=== PATIENT | male | born 1985 | race African-American/Black ===

== ENCOUNTER 2019-09-13 00:16 | Outpatient (CLI) | payer OTHER, SELFPAY ==
[2019-09-13 18:31] LABS: SARS-CoV-2 RNA PCR Negative
== END 2019-09-13 00:17 | disposition home or self-care (01) ==
LOC: ANHCOVIDDT 00:17
PROVIDERS: PCP Family Medicine; Visit Provider Otolaryngology
DX: Z01.812 Encounter for preprocedural laboratory examination (principal); Z11.59 Encounter for screening for other viral diseases
CPT/HCPCS: 87635; C9803; U0003

== ENCOUNTER 2019-09-16 01:49 | Day surgery (SDC) | payer OTHER, SELFPAY ==
[2019-09-08 09:38] VITALS: BMI 35.3
--- NOTE | 2019-09-15 07:43 | PM.HPGS ---
History of Present Illness History of Present Illness Consent: Risks, benefits, and has a history of inability to breathe out of his nose is septum is deviated with obstruction Luís is otherwise negative chest clear other murmurs abdomen is soft and is negative impression septal deviation septoplastyalternatives have been discussed and questions answered. Patient agrees to proceed with procedure. Chief complaint: Nasal Septal Deviation Narrative: Yvon Antoine is a 34 year old male has a deviated septum with nasal obstruction that he can't breathe out of his nose has been unresponsive to medical management Review of Systems Review of Systems: All systems reviewed & are unremarkable except as noted in HPI and below PMFSH Social History Social History Years smoked: 3 Smoking status: Never smoker Tobacco type: cigars Second hand tobacco smoke exposure: No Additional smoking assessment comments: SMOKES CIGARS OCCASIONALLY Alcohol intake: never Substance use: never Substance use type: does not use Spiritual care concerns: No Meds Home Medications and Allergies Home Medications Medication Instructions Recorded Confirmed Type multivitamin 1 tablet PO DAILY 09/08/19 09/08/19 History Allergies Allergy/AdvReac Type Severity Reaction Status Date / Time No Known Allergies Allergy Verified 09/08/19 09:39 Assessment and Plan Additional Plan planus a septoplasty
--- NOTE | 2019-09-15 17:02 | P.PNAN_ITS ---
Anes - Eval Pre Procedure Procedure: Operation Date: 09/16/19 08:30 Proposed Procedures p Septoplasty - Fer Schwartz MD Date/Time: 09/15/19 17:02 Pre Op Diagnosis: Nasal Septal Deviation Patient Data Age: 34 Gender: M Height: 6 ft 2 in Weight: 124.74 kg Allergies Allergy/AdvReac Type Severity Reaction Status Date / Time No Known Allergies Allergy Verified 09/08/19 09:39 Home Medications Medication Instructions Recorded Confirmed Type multivitamin 1 tablet PO DAILY 09/08/19 09/08/19 History Patient hx anesthesia problems: none Family hx anesthesia problems: none PMF Past Medical History Medical History (Updated 09/15/19 @ 17:03 by Duane Wood CRNA) Broken nose 2002 Chronic recurrent sinusitis Deviated septum Eczema Seasonal allergies Stuffy nose (~11/2018) Syncope Surgical History Surgical History History of nasal surgery 2002 [place] teeth extracted 2001 Social History Social History Years smoked: 3 Smoking status: Never smoker Tobacco type: cigars Second hand tobacco smoke exposure: No Additional smoking assessment comments: SMOKES CIGARS OCCASIONALLY Alcohol intake: never Substance use: never Substance use type: does not use Spiritual care concerns: No Exam Day of Procedure 09/15/19 17:02 Patient weight: morbidly obese
--- NOTE | 2019-09-16 06:08 | WPDHPUPDATE1 ---
History and Physical Update Update Date/Time: 09/16/19 06:08 History and Physical has been reviewed, including an updated exam of the patient. There are NO changes in the patient's condition. Risks, benefits, and alternatives have been discussed and questions answered. Patient agrees to proceed with procedure.
[2019-09-16] MEDS: LACTATED RINGERS 1,000 ML 30 ML IV CONT (06:50)
--- NOTE | 2019-09-16 07:08 | P.PNAN_ITS ---
Anes - Initial Pre Proc Eval Procedure: Operation Date: 09/16/19 08:30 Proposed Procedures p Septoplasty - Fer Schwartz MD Date/Time: 09/16/19 07:08 Surgeon: Fer Schwartz MD Pre Op Diagnosis: Nasal Septal Deviation Patient Data Age: 34 Gender: M Height: 6 ft 2 in Weight: 124.74 kg Allergies Allergy/AdvReac Type Severity Reaction Status Date / Time No Known Allergies Allergy Verified 09/08/19 09:39 Home Medications Medication Instructions Recorded Confirmed Type multivitamin 1 tablet PO DAILY 09/08/19 09/08/19 History Patient hx anesthesia problems: none Family hx anesthesia problems: none PMFSH Past Medical History Medical History Broken nose 2002 Chronic recurrent sinusitis Deviated septum Eczema Seasonal allergies Stuffy nose (~11/2018) Syncope Surgical History Surgical History History of nasal surgery 2002 [place] teeth extracted 2001 Family History Family History Other No pertinent family history Social History Social History Years smoked: 3 Smoking status: Never smoker Tobacco type: cigars Second hand tobacco smoke exposure: No Additional smoking assessment comments: SMOKES CIGARS OCCASIONALLY Alcohol intake: never Substance use: never Substance use type: does not use Spiritual care concerns: No Anes - Eval Final PreProcedure Day of Procedure 09/16/19 07:08 Patient weight: obese Heart: regular rate and rhythm Lungs: clear to auscultation Airway: Mallampati scale class II Neurological: alert and oriented Last oral intake: >/= 8 hours ASA classification: II Emergent: no Anesthetic plan: proceed Anesthesia type and monitoring: general ETT and standard monitoring Informed Consent: The patient's anesthetic plan and its attendant risks and benefits were discussed with the patient/family/POA. Questions were solicited and answers provided to the satisfaction of the patient/family/POA.
--- NOTE | 2019-09-16 07:39 | PM.PROC ---
Procedure Note - Detailed Date of procedure: 09/16/19 Pre-op diagnosis: Nasal Septal Deviation Surgeon: Fer Schwartz MD
[2019-09-16] MEDS: ACETAMINOPHEN 500 MG TABLET 1000 MG PO (07:45)
--- NOTE | 2019-09-16 08:02 | PM.PROC ---
Procedure Note - Detailed Date of procedure: 09/16/19 Pre-op diagnosis: Nasal Septal Deviation Post-op diagnosis: same Procedure performed: Tonsillectomy Description of procedure: Patient was prepped and draped in usual fashion after induction of anesthesia. The McIvor mouth gag was inserted. The tonsils were removed dissection technique hemostasis was obtained electrocautery. The mouth was inspected for bleeding. When stablized patient was awaken and brought to the recovery room in good condition. Anesthesia: GLMA Surgeon: Fer Schwartz MD Estimated blood loss (mL): 15 Drains: No Packing: No Pathology: none sent Complications: No immediate complications Condition: stable Disposition: PACU
[2019-09-16] MEDS: LIDO 1%/EPINEPHRINE 1:100,000 20 ML VIAL 10 ML INFILTRATE (08:34)
--- NOTE | 2019-09-16 08:54 | PM.PROC ---
Procedure Note - Detailed Date of procedure: 09/16/19 Pre-op diagnosis: Nasal Septal Deviation septal deviation nasal polyps Description of procedure: patient was prepped and draped fashion general anesthesia the nose was packed with cocaine impregnated cottonoids and then injected with xylocaine with adrenaline inspection of the nose revealed a septum deviated to the right a left efren transfix incision was made left anterior portion was elevated the bony cartilage junction it appeared that there were polyps on the right and left side was removed with Sanjay forceps strip of septal cartilage removed off the maxillary crest incision was then closed with 4 0 chromic García splints placed in neck with Surgicel Anesthesia: GLMA Surgeon: Fer Schwartz MD Estimated blood loss (mL): 25 Drains: No Packing: Yes Pathology: yes Complications: No immediate complications Condition: stable Disposition: PACU
[2019-09-16 09:04] VITALS: BP 144/97; PULSE 99; RESP 20; TEMP 36.7; O2SAT 97
[2019-09-16 09:15] VITALS: BP 126/91; PULSE 90; RESP 20; O2SAT 100
[2019-09-16 09:30] VITALS: BP 129/95; PULSE 80; RESP 12; O2SAT 100
[2019-09-16 09:45] VITALS: BP 134/95; PULSE 79; RESP 10; O2SAT 96
[2019-09-16 09:55] VITALS: BP 135/91; PULSE 73; RESP 16
[2019-09-16 10:15] VITALS: BP 140/87; PULSE 82; RESP 16
== END 2019-09-16 10:30 | disposition home or self-care (01) ==
PROVIDERS: PCP Family Medicine; Visit Provider Otolaryngology
PROC: (CPT 30520; principal; 2019-09-16 08:30)
DX: J34.2 Deviated nasal septum (principal); J33.9 Nasal polyp, unspecified; Z72.0 Tobacco use
CPT/HCPCS: 30520; 87635; 88305; A9270; C9803; J0330; J1100; J2250; J2405; J2704; J3010; J7120; U0003

== ENCOUNTER 2020-02-14 07:50 | Emergency (ER) | payer OTHER, SELFPAY ==
--- NOTE | ~2020-02-14 | XR_ITS ---
EXAMINATION: XR chest 1V portable DATE: 02/14/2020 08:50 INDICATION: Fever and chills. Diarrhea. TECHNIQUE: A single frontal view of the chest was obtained. COMPARISON: None. FINDINGS: The chest demonstrates clear lungs without pneumonia, pleural effusion, or pneumothorax. Th e heart size is normal. IMPRESSION: 1. No acute cardiopulmonary disease. Reviewed, dictated and finalized at location A. UNTANT SYSTEMS
--- NOTE | ~2020-02-14 | CT_ITS ---
EXAMINATION: CTA chest PE protocol DATE: 02/14/2020 10:28 INDICATION: Shortness of breath. TECHNIQUE: Computed tomography angiography (CTA) of the chest was performed with 100 mL Omnipaque-350 intravenous contrast timed to evaluate the pulmonary arteries. Coronal maximum intensity projection 3D-reconstructions were created by the technologist. Automated exposure control and iterative reconst ruction technique were employed. The dose-length product was 997.12 mGy-cm. COMPARISON: Chest single view 02/14/2020 FINDINGS: There is mild atelectasis bilaterally. No pleural effusion. The heart size is normal. No pe ricardial effusion. There is no pulmonary embolus. There is mild thoracic spondylosis. IMPRESSION: 1. No pulmonary embolus. Sensitivity is moderately decreased by suboptimal contrast opacification. Th e patient refused new IV placement. Reviewed, dictated and finalized at location A. OMER SALES REPRESENTATIVE IMPRESSION: 1. No pulmonary embolus. Sensitivity is moderately decreased by suboptimal cont rast opacification. The patient refused new IV placement.
[2020-02-14 07:53] VITALS: BP 137/79; PULSE 96; RESP 20; TEMP 36.5; O2SAT 97
--- NOTE | 2020-02-14 08:15 | ECG_ITS ---
Measurements Intervals [place] Rate: 99 P: 26 [place]: 139 QRS: -8 QRSD: 102 T: 0 QT: 287 QTc: 369 Interpretive Statements SINUS RHYTHM INCOMPLETE RIGHT BUNDLE BRANCH BLOCK BORDERLINE T WAVE ABNORMALITY- ANT/INF LEADS BASELINE ARTIFACT- I, II, III, AVL BORDERLINE ECG Electronically Signed On 02-14-2020 10:17:47 BAGGAGE CHECKER by Iggy Bennett D.O.
[2020-02-14] MEDS: ONDANSETRON INJ 4 MG/2 ML VIAL IV PUSH (08:30)
[2020-02-14] MEDS: SODIUM CHLORIDE 0.9% IV 1,000 ML 999 ML IV CONT (08:30)
[2020-02-14 08:50] LABS: Basophils Absolute Auto 0.1 K/mm3 (0.0-0.1); Basophils Percent Auto 0.5 % (0.2-1.2); Eosinophils Absolute Auto 0.1 K/mm3 (0-0.3); Eosinophils Percent Auto 0.9 % (0-4.4); Hemoglobin 13.2 g/dL (14.0-18.0); Immature Granulocyte Absolute 0.04 K/mm3 (0.00-0.031); Immature Granulocyte Percent A 0.4 % (0-0.5); Lymphocytes Absolute Auto 1.06 K/mm3 (0.9-3.2); Lymphocytes Percent Auto 10.6 % (18.3-44.2); Mean Corpuscular Hemoglobin 27.2 pg (26-34); Mean Corpuscular Volume 82.3 fl (80-100); Mean Platelet Volume 9.8 fl (7.4-10.4); Monocytes Absolute Auto 0.8 K/mm3 (0.1-0.6); Monocytes Percent Auto 7.9 % (2.6-8.5); Neutrophils Percent Auto 79.7 % (45.5-73.1); Platelet Count Result 249 k/mm3 (150-375); Red Blood Count 4.86 M/mm3 (4.6-6.20); Red Cell Distribution Width 13.7 % (11.5-14.5)
[2020-02-14 09:02] LABS: D Dimer 0.51 ug/mL (<0.48)
[2020-02-14 09:04] LABS: Alanine Aminotransferase 48 U/L (4-50); Albumin Level 4.3 g/dL (3.5-5.1); Alkaline Phosphatase 66 U/L (38-126); Anion Gap 13 mmol/L (8-16); Aspartate Amino Transferase 66 U/L (17-59); Bilirubin,Total 0.4 mg/dL (0.2-1.3); Blood Urea Nitrogen 15 mg/dL (9-20); Calcium 9.3 mg/dL (8.4-10.2); Carbon Dioxide 25 mmol/L (22-30); Chloride 102 mmol/L (98-107); Estimated CRCL calculation 166 ml/min; Estimated Glomerular Filt Rate > 60; Glucose 102 mg/dL (75-110); Lipase 56 U/L (23-300); Potassium 3.8 mmol/L (3.4-5.0); Sodium 140 mmol/L (137-145)
[2020-02-14 09:34] LABS: Add Urine Microscopic? YES; Appearance Urine Clear (Clear); Bilirubin Urine Negative (Negative); Blood Urine Negative (Negative); Color Urine Yellow (Yellow); Glucose Urine UA Negative (Negative); Hyaline Casts Urine 15-19 /lpf; Ketones Urine Negative (Negative); Leukocyte Esterase Ur Negative LEU/UL (Negative); Mucus Urine Few /lpf; Nitrate Urine Negative (Negative); Protein Urine 1+ mg/dL (Negative); RBC Urine 0-2 /hpf (0-2); Specific Grav Ur 1.019 (1.001-1.035); Squamous Epithelial Cell Urine Rare /hpf (Few); Urobilinogen Urine Negative mg/dL (<2.0); WBC Urine 0-3 /hpf
--- NOTE | 2020-02-14 10:24 | ED.FEVER ---
HPI - Fever General Chief Complaint: Fever Stated Complaint: FEVER, CONGESTION Time Seen by Provider: 02/14/20 07:55 Source: patient Mode of arrival: ambulatory Limitations: no limitations History of Present Illness HPI Narrative: This patient is a 34 year old male who presents for evaluation of possible covid. He states this morning he developed nausea, vomiting, diarrhea. HE reports he had 3 episodes of diarrhea and abdominal pain. He denies abdominal pain now. He also reports body aches and low grade temperature this morning. He also report cough and sob this morning. He states was seen at [facility] but he started feeling sob so he came to [facility] . He denies sob currently and he denies chest pain. He reports his daughter has covid. Related Data Home Medications Medication Instructions Recorded Confirmed multivitamin 1 tablet PO DAILY 09/08/19 09/16/19 Allergies Allergy/AdvReac Type Severity Reaction Status Date / Time No Known Allergies Allergy Verified 02/14/20 08:03 Review of Systems Review of Systems: All systems reviewed & are unremarkable except as noted in HPI and below Constitutional: Constitutional: Reports chills and Reports fever(s) ENT: Reports nasal congestion and Denies sore throat Cardiovascular: Cardiovascular: Denies chest pain Respiratory: Respiratory: Denies cough and Reports dyspnea Gastrointestinal: Gastrointestinal: Reports abdominal pain, Reports diarrhea, Reports nausea and Reports vomiting Musculoskeletal: Musculoskeletal: Reports myalgias Neurologic: Reports headache(s) [facility] Past Medical History Medical History (Updated 02/14/20 @ 11:32 by Brianna Heaton MD) Broken nose 2002 Chronic recurrent sinusitis Deviated septum Eczema Seasonal allergies Stuffy nose (~11/2018) Syncope Surgical History Surgical History History of nasal surgery 2002 [place] teeth extracted 2001 Family History Family History Other No pertinent family history Social History Social History Years smoked: 3 Smoking status: Never smoker Tobacco type: cigars Second hand tobacco smoke exposure: No Additional smoking assessment comments: SMOKES CIGARS OCCASIONALLY Alcohol intake: never Substance use: never Substance use type: does not use Gender identity (if verbalized by the patient): Male Spiritual care concerns: No Exam Const: General: no acute distress and alert Orientation/consciousness: patient oriented x3 HENMT: Head: normocephalic and atraumatic Ears: TM's normal bilaterally Face and sinus: sinuses nontender and face symmetric Mouth: Yes Normal oral and palatal mucosa present, Yes lip normal, Yes oropharynx normal and Yes moist mucous membranes Throat: tonsils normal and uvula midline Eyes: Pupils: Equal, round and reactive pupils present EOM: EOMs intact bilaterally Chest: Chest palpation & inspection: normal inspection of the chest Resp: Effort & Inspection: normal respiratory effort, no retractions and no use of accessory muscles Auscultation: clear to auscultation bilaterally Cardio: Rate: regular rate Rhythm: regular rhythm Heart sounds: no murmurs GI: GI Palp: Yes Soft to palpation, No Tenderness to palpation present (GI) and No Guarding due to palpation present (GI) Auscultation: normal bowel sounds Skin: General skin exam: normal color Rashes: no rashes Neuro: General: patient oriented x3, moves all extremities and CN's II-XI intact bilaterally Extrem: General: normal to inspection Psych: Mental Status: mental status grossly normal Affect: normal affect Course Reevaluation(s) Reevaluation #1: PAtient denies nausea and vomiting . I explained that the CTA that was performed was not optimal enough to completely rule out PE. I discuss
[2020-02-14 11:20] VITALS: BP 115/72; PULSE 89; RESP 16; O2SAT 95
[2020-02-14 11:46] VITALS: BP 115/66; PULSE 98; RESP 19; O2SAT 99
[2020-02-14 18:58] LABS: SARS-CoV-2 RNA PCR Negative
== END 2020-02-14 11:47 | disposition home or self-care (01) ==
PROVIDERS: Emergency Provider General Practice; PCP Family Medicine
DX: B34.9 Viral infection, unspecified (principal); E86.0 Dehydration; Z20.828 Contact with and (suspected) exposure to other viral communicable diseases; F17.290 Nicotine dependence, other tobacco product, uncomplicated; I45.10 Unspecified right bundle-branch block; R94.31 Abnormal electrocardiogram [ECG] [EKG]
CPT/HCPCS: 36415; 71045; 71275; 80053; 81001; 83690; 85025; 85380; 87635; 87804; 93005; 96361; 96374; 96375; 99284; C9803; J0131; J2405; J7030; Q9967; U0003

== ENCOUNTER 2020-03-05 14:06 | Outpatient (CLI) | payer OTHER, SELFPAY ==
--- NOTE | ~2020-03-05 | CT_ITS ---
EXAMINATION: CT sinus wo con DATE: 03/05/2020 14:30 INDICATION: Follow-up of nasal cavity TECHNIQUE: Computed tomography (CT) of the paranasal sinuses was performed without contrast. Iterativ e reconstruction technique was employed. Exam dose: 294.13 mGy-cm total exam DLP. COMPARISON: None FINDINGS: There is rightward bowing of the nasal septum. There is extensive soft tissue thickening of the left nasal cavity and opacification of the middle me diated 6 bilaterally, the middle nasal turbinates largely and coughed by surrounding soft tissue thic kening. There is soft tissue swelling of the inferior nasal turbinates, primarily on the left. The left and right maxillary sinuses and of the ostiomeatal units as well as the frontal and sphenoid sinuses are virtually completely opacified, with small locule residual air only in the right frontal sinus. There is extensive opacification of the ethmoid air cells as well. The bony laureano of the paranasal sinuses are intact except for thinning along the medial wall of both maxillary sinuses. The mastoid air cells are normally developed and aerated bilaterally. Middle and inner ear apparatus appear unremarkable bilaterally. IMPRESSION: Severe pansinusitis with nearly complete opacification of the paranasal sinuses and comp lete opacification of the ostiomeatal units Extensive soft tissue thickening of the left nasal cavity, the middle meatus bilaterally Reviewed, dictated and finalized at Location A. Reviewed, dictated and finalized at location B. NEL OPENER IMPRESSION: Severe pansinusitis with nearly complete opacification of the para nasal sinuses and complete opacification of the ostiomeatal units Extensive soft tissue thickening of the left nasal cavity, the middle meatus bi laterally
== END 2020-03-05 14:07 | disposition home or self-care (01) ==
PROVIDERS: PCP Family Medicine; Visit Provider Otolaryngology
DX: J33.0 Polyp of nasal cavity (principal)
CPT/HCPCS: 70486

== ENCOUNTER → 2020-04-06 03:36 | Outpatient (CLI) | payer OTHER, SELFPAY ==
[2020-04-07 18:18] LABS: SARS-CoV-2 RNA PCR Negative
== END ==
PROVIDERS: PCP Family Medicine; Visit Provider Otolaryngology
DX: Z01.812 Encounter for preprocedural laboratory examination (principal); Z20.822 Contact with and (suspected) exposure to COVID-19
CPT/HCPCS: C9803; U0003; U0005

== ENCOUNTER 2020-04-09 01:24 | Day surgery (SDC) | payer OTHER, SELFPAY ==
[2020-04-05 14:12] VITALS: BMI 37.2
--- NOTE | 2020-04-08 12:28 | PM.IMHP ---
H&P: HPI History of Present Illness Date/Time: 04/08/20 12:28 Chief Complaint: crs, nasal polyps, septal deviation, inferior turbinate hypertrophy Narrative: Yvon Antoine is a 34 year old male who presents for planned surgical procedure. He reports No new changes in his symptoms or medical history. Review of Systems Constitutional: Constitutional: Denies fatigue, Denies fever(s) and Denies lethargy Eyes: Eyes: Denies blurry vision and Denies change in vision ENT: Reports as per HPI Cardiovascular: Cardiovascular: Denies chest pain Respiratory: Respiratory: Denies cough Endocrine: Endocrine: Denies fatigue Hematologic/Lymphatic: Hematologic/Lymphatic: Denies easy bleeding, Denies easy bruising and Denies lymphadenopathy Allergic/Immunologic: Allergic/Immunologic: Denies seasonal rhinorrhea [facility] Past Medical History Medical History (Updated 04/08/20 @ 12:29 by Wilner Shearer MD) Broken nose 2002 Chronic recurrent sinusitis Deviated septum Eczema Seasonal allergies Stuffy nose (~11/2018) Syncope Surgical History Surgical History History of nasal surgery 2002 [place] teeth extracted 2001 Family History Family History Other No pertinent family history Social History Social History Years smoked: 3 Smoking status: Never smoker Tobacco type: cigars Second hand tobacco smoke exposure: No Additional smoking assessment comments: SMOKES CIGARS OCCASIONALLY Alcohol intake: current Drinks per week: 1 Substance use: current Substance use type: marijuana Last use: 04/04/2020 Gender identity (if verbalized by the patient): Male Spiritual care concerns: No Meds Home Medications and Allergies Home Medications Medication Instructions Recorded Confirmed Type fluticasone propionate 50 1 spray INTRANASAL BID #9.9 ml 02/11/20 04/05/20 Rx mcg/actuation nasal spray,suspension budesonide 0.25 mg/2 mL suspension 0.25 mg IRRIGATION BID #60 ml 03/11/20 04/05/20 Rx for nebulization Allergies Allergy/AdvReac Type Severity Reaction Status Date / Time No Known Allergies Allergy Verified 04/05/20 14:08 Exam Const: General: cooperative, healthy appearing, comfortable, well developed and alert HENMT: Head: normal to inspection, normocephalic and atraumatic Ears: hearing grossly normal bilaterally, external ears normal, TM's normal bilaterally and EAC's normal General nose exam: Normal external nose present, Normal nares present, nasal polyps, mucous membranes and turbinates abnormal and abnormal septum Face and sinus: normal facial exam Mouth: Yes Normal oral and palatal mucosa present, Yes lip normal, Yes tongue normal, Yes oropharynx normal and Yes moist mucous membranes Teeth and gingiva: dentition normal and gingiva normal Throat: posterior oropharynx normal, tonsils normal and uvula midline Eyes: General: appearance normal, both eyes and all related structures Periorbital: periorbital findings normal Eyelids: eyelids normal Conjunctivae: conjunctivae normal Sclera: sclerae normal Neck: Neck: normal visual inspection, full ROM and no lymphadenopathy Thyroid: thyroid normal Lymphatic: no lymphadenopathy noted Resp: Effort & Inspection: normal respiratory effort and able to speak in complete sentences Cardio: Jugular venous distension: no JVD Neuro: Cranial nerves: Yes CN's II-XII intact bilaterally Assessment and Plan Assessment and plan (1) Chronic sinusitis: Code(s): J32.9 - Chronic sinusitis, unspecified Status: Acute Assessment and Plan: plan is for the OR for bilateral endoscopic maxillary antrostomies total ethmoidectomies sphenoidotomy is and frontal sinusotomies as well as septoplasty and inferior turbinate reductions. The risks were discussed including bl
--- NOTE | 2020-04-08 15:41 | P.PNAN_ITS ---
Anes - Initial Pre Proc Eval Procedure: Operation Date: 04/09/20 15:30 Proposed Procedures p Bilateral Endoscopic Maxillary Antrostomy, Total Ethmoidectomy, Sphenoidotomy, Frontal Sinusotomy Fusion Protocol, Nasal Polypectomy - Wilner Shearer MD s Septoplasty - Wilner Shearer MD Date/Time: 04/08/20 15:41 Surgeon: Wilner Shearer MD Pre Op Diagnosis: Chronic Sinusitis, Nasal Septum Deviation Patient Data Age: 34 Gender: M Height: 1.88 m Weight: 131.54 kg Allergies Allergy/AdvReac Type Severity Reaction Status Date / Time No Known Allergies Allergy Verified 04/09/20 13:21 Home Medications Medication Instructions Recorded Confirmed Type fluticasone propionate 50 1 spray INTRANASAL BID #9.9 ml 02/11/20 04/09/20 Rx mcg/actuation nasal spray,suspension budesonide 0.25 mg/2 mL suspension 0.25 mg IRRIGATION BID #60 ml 03/11/20 04/09/20 Rx for nebulization Patient hx anesthesia problems: none Family hx anesthesia problems: none PMFSH Past Medical History Medical History (Updated 04/08/20 @ 15:42 by Ted Rios MD) Broken nose 2002 Chronic recurrent sinusitis Deviated septum Eczema Obesity Seasonal allergies Stuffy nose (~11/2018) Syncope Surgical History Surgical History History of nasal surgery 2002 [place] teeth extracted 2001 Family History Family History Other No pertinent family history Social History Social History Years smoked: 3 Smoking status: Never smoker Tobacco type: cigars Second hand tobacco smoke exposure: No Additional smoking assessment comments: SMOKES CIGARS OCCASIONALLY Alcohol intake: current Drinks per week: 1 Alcohol use details: MIXED DRINK Substance use: current Substance use type: marijuana Last use: 04/04/2020 Living arrangements: with family Gender identity (if verbalized by the patient): Male Spiritual care concerns: No Anes - Eval Final PreProcedure Day of Procedure 04/08/20 15:41 Patient weight: obese Heart: regular rate and rhythm Lungs: clear to auscultation and normal air movement Airway: Mallampati scale class II Neurological: alert and oriented Last oral intake: >/= 8 hours ASA classification: II Emergent: no Anesthetic plan: proceed Anesthesia type and monitoring: general GIVS Informed Consent: The patient's anesthetic plan and its attendant risks and benefits were discussed with the patient/family/POA. Questions were solicited and answers provided to the satisfaction of the patient/family/POA.
[2020-04-09] VITALS (10 sets, daily range): BP systolic 128–150; BP diastolic 56–103; PULSE 71–84; RESP 10–18; TEMP 36.9–37.1; O2SAT 93–100
--- NOTE | 2020-04-09 06:57 | WPDHPUPDATE1 ---
History and Physical Update Update Date/Time: 04/09/20 06:57 History and Physical has been reviewed, including an updated exam of the patient. There are NO changes in the patient's condition. Risks, benefits, and alternatives have been discussed and questions answered. Patient agrees to proceed with procedure.
--- NOTE | 2020-04-09 12:36 | SUR.PREOP ---
CALLED PT AND LEFT MESSAGE TO COME TO HOSPITAL NOW. SURGEON RUNNING AHEAD.
[2020-04-09] MEDS: LACTATED RINGERS 1,000 ML 30 ML IV CONT ×2 (13:45→17:01)
[2020-04-09] MEDS: ACETAMINOPHEN 500 MG TABLET 1000 MG PO (13:45)
[2020-04-09] MEDS: ceFAZolin 2 GM/D5W 50 ML 2 GM/50 ML BAG IVPB (14:38)
[2020-04-09] MEDS: LIDO 1%/EPINEPHRINE 1:100,000 50 ML VIAL INFILTRATE (14:49)
--- NOTE | 2020-04-09 17:08 | PM.PROC ---
Procedure Note - Detailed Date of procedure: 04/09/20 Pre-op diagnosis: Chronic Sinusitis, Nasal Septum Deviation No nasal septal deviation no inferior turbinate hypertrophy Post-op diagnosis: same Procedure performed: Bilateral endoscopic maxillary antrostomies with tissue removal total ethmoidectomies sphenoidotomies with tissue removal frontal sinusotomies with tissue removal Description of procedure: The patient was correctly identified and consent was verified in the preoperative holding area. The patient was then brought to the operating room and a time-out was performed. General anesthesia was induced and endotracheal tube was secured the patient's airway and taped the left lower lip. The patient was then prepped and draped for the aforementioned procedure and placed in reverse Trendelenburg. Afrin-soaked pledgets were placed in the bilateral nasal passages and allowed to sit for 10 minutes. Afrin-soaked pledgets were then removed. A 0 degree endoscope was utilized to the bilateral nasal passages were polyps were noted. Backbiter was utilized to perform a left-sided maxillary antrostomy this was completed using a straight through cut. A 70 degree as well as RAD 40 scope relies to perform and complete the tissue removal from the left maxillary sinus. Kerrison punch was then utilized to perform total ethmoidectomy and sphenoidotomy. Microdebrider was utilized to remove tissue from the sphenoid sinus as well as polyps throughout the nasal passage. A 70 degree scope and frontal sinus instruments were utilized to dissect the frontal sinus outflow tract. Again the RAD 40 was utilized to remove tissue from the frontal sinus. Hemostasis was noted to be adequate. The same procedure was performed on the right side with similar findings. Of note a portion of the right middle turbinate also had to be removed given its size of severe polypoid disease. Hemostasis at the end of the procedure was noted to be excellent. Patient tolerated the procedure well. There were no complications. Care of the patient was turned over to Anesthesiology. I performed all dictated portions of the procedure. Anesthesia: GLMA Surgeon: Wilner Shearer MD Complications: No immediate complications Condition: stable Disposition: PACU
[2020-04-09] MEDS: oxyCODONE HCL (*CRX) 5 MG TAB IR PO (18:29)
== END 2020-04-09 19:05 | disposition home or self-care (01) ==
PROVIDERS: PCP Family Medicine; Visit Provider Otolaryngology
PROC: (CPT 31267; principal; 2020-04-09 15:30)
PROC: (CPT 30520; 2020-04-09 15:30)
DX: J32.9 Chronic sinusitis, unspecified (principal); J34.2 Deviated nasal septum; J34.3 Hypertrophy of nasal turbinates; J33.8 Other polyp of sinus; E66.9 Obesity, unspecified; Z68.39 Body mass index [BMI] 39.0-39.9, adult
CPT/HCPCS: 31267; 31257; 31253; 61782; A9270; C9803; J0330; J0690; J1100; J1170; J2250; J2370; J2405; J2704; J3010; J7120; U0003; U0005

== ENCOUNTER 2020-04-26 04:40 | Inpatient (IN) | payer OTHER, SELFPAY ==
[2020-04-26] VITALS (7 sets, daily range): BP systolic 109–122; BP diastolic 58–74; PULSE 102–117; RESP 16–20; TEMP 36.9–37.5; O2SAT 95–100; BMI 38.7
--- NOTE | ~2020-04-26 | XR_ITS ---
EXAMINATION: XR chest 1V portable DATE: 04/26/2020 05:24 INDICATION: Tachycardia. TECHNIQUE: A single frontal view of the chest was obtained. COMPARISON: Chest CT 04/26/2020 FINDINGS: There is no pneumonia, pleural effusion, or pneumothorax. Cardiomegaly is noted. IMPRESSION: 1. Cardiomegaly. Reviewed, dictated and finalized at location A. LLEL COMPUTING SOFTWARE ENGINEER IMPRESSION: 1. Cardiomegaly.
--- NOTE | ~2020-04-26 | CT_ITS ---
EXAMINATION: CTA chest PE protocol DATE: 04/26/2020 05:47 INDICATION: Tachycardia. TECHNIQUE: Computed tomography angiography (CTA) of the chest was performed with 100 mL Omnipaque-350 intravenous contrast timed to evaluate the pulmonary arteries. Coronal maximum intensity projection 3D-reconstructions were created by the technologist. Automated exposure control and iterative reconst ruction technique were employed. The dose-length product was 915.27 mGy-cm. COMPARISON: None. FINDINGS: The lungs demonstrate mild atelectasis. No pleural effusion. The heart size is normal. No p ericardial effusion. The central pulmonary arteries are enlarged, consistent with pulmonary arterial hypertension. There is no pulmonary embolus. There is mild thoracic spondylosis. There are bridging e ndplate osteophytes at multiple levels in the spine, consistent with diffuse idiopathic skeletal hype rostosis (DISH). IMPRESSION: 1. No visible pulmonary embolus, but sensitivity is moderately decreased by motion artifact and subop timal contrast opacification. 2. Enlarged central pulmonary arteries, consistent with pulmonary arterial hypertension. Reviewed, dictated and finalized at location A. UDER TENDER IMPRESSION: 1. No visible pulmonary embolus, but sensitivity is moderately decreased by mot ion artifact and suboptimal contrast opacification. 2. Enlarged central pulmonary arteries, consistent with pulmonary arterial hype rtension.
--- NOTE | 2020-04-26 04:41 | ECG_ITS ---
Measurements Intervals [place] Rate: 103 P: 28 CT: 131 QRS: 7 QRSD: 96 T: 11 QT: 327 QTc: 429 Interpretive Statements SINUS TACHYCARDIA NONSPECIFIC T-WAVE ABNORMALITY- INFERIOR LEADS BORDERLINE ECG Electronically Signed On 04-26-2020 7:09:34 BILL DISTRIBUTOR by Iggy Bennett D.O.
--- NOTE | 2020-04-26 04:45 | PM.IMHP ---
H&P: HPI History of Present Illness Date/Time: 04/26/20 04:45 Chief Complaint: Direct admit from [facility] secondary to hypoxia Narrative: This is a pleasant 35 year old male with known history of chronic sinusitis s/p bilateral endoscopic maxillary antrostomies with tissue removal total ethmoidectomies sphenoidotomies with tissue removal frontal sinusotomies with tissue removal approximately 2 weeks ago who presented to [facility] hospital yesterday evening with a compliant of 2 days of chills and generalized weakness. The patient has done well post operatively and did receive a full course of Ceftin which he completed after his surgery. Tonight at [facility] the patient was found to be septic with tachycardia and fever. He complained of one brief episode of dysuria but states that he hasn't had any further painful urination. He denies any significant coughing or shortness of breath. He also denies any chest pain, nasuea, vomiting, sore throat, nasal discomfort, abdominal pain, diarrhea, rectal bleeding, LE swellin or LE pain. CXR demonstrated ground glass opacities and the patient was treated with a 30cc/kg IV bolus of fluids and IV antibiotics. He subsequently become fluid overloaded and was given IV Lasix. He needed to be placed on supplemental oxygen 2L via [place]. We were asked to accept the patient as a direct admission as [facility] did not have any available beds. Review of Systems Review of Systems: All systems reviewed & are unremarkable except as noted in HPI and below PMFSH Past Medical History Medical History Broken nose 2002 Chronic recurrent sinusitis Deviated septum Eczema Obesity Seasonal allergies Stuffy nose (~11/2018) Syncope Surgical History Surgical History History of nasal surgery 2003 [place] teeth extracted 2001 Family History Family History Other No pertinent family history Social History Social History Years smoked: 3 Smoking status: Never smoker Tobacco type: cigars Second hand tobacco smoke exposure: No Additional smoking assessment comments: SMOKES CIGARS OCCASIONALLY Alcohol intake: current Drinks per week: 1 Substance use: current Substance use type: marijuana Last use: 04/04/2020 Gender identity (if verbalized by the patient): Male Spiritual care concerns: No Meds Home Medications and Allergies Home Medications Medication Instructions Recorded Confirmed Type fluticasone propionate 50 1 spray INTRANASAL BID #9.9 ml 02/11/20 04/09/20 Rx mcg/actuation nasal spray,suspension budesonide 0.25 mg/2 mL suspension 0.25 mg IRRIGATION BID #60 ml 03/11/20 04/09/20 Rx for nebulization budesonide 0.25 mg/2 mL suspension 0.25 mg IRRIGATION BID #60 ml 04/09/20 Rx for nebulization oxycodone 5 mg PO Q8H PRN #10 tablet 04/09/20 Rx prednisone 40 mg PO DAILY 5 Days #10 tablet 04/09/20 Rx cefuroxime axetil 250 mg tablet 250 mg PO Q12H #14 tablet 04/19/20 04/19/20 Rx Allergies Allergy/AdvReac Type Severity Reaction Status Date / Time No Known Allergies Allergy Verified 04/19/20 13:08 Vital Signs Vital Signs - 24 hr 04/26/20 04:10 Temperature 37.5 C Pulse Rate 117 H Respiratory Rate 20 Blood Pressure 110/72 Pulse Oximetry 100 Exam Const: General: cooperative, no acute distress, alert, awake and other (On 2L of oxygen via NC. ) Nutritional Appearance: obese Orientation/consciousness: patient oriented x3 HENMT: Head: normal to inspection General nose exam: Normal external nose present Face and sinus: normal facial exam Mouth: Yes Normal oral and palatal mucosa present and Yes oropharynx normal Eyes: Pupils: Equal, round and reactive pupils present EOM: EOMs intact bilaterally Neck: Neck: supple and no JVD Thyroid: thyroid venkat
[2020-04-26 05:41] LABS: Hematocrit 37.3 % (42.0-52.0); Hemoglobin 12.1 g/dL (14.0-18.0); Mean Corpuscular HGB Conc 32.4 g/dl (32-36); Mean Corpuscular Hemoglobin 26.6 pg (26-34); Mean Platelet Volume 9.7 fl (7.4-10.4); Platelet Count Result 160 k/mm3 (150-375); Red Blood Count 4.55 M/mm3 (4.6-6.20); Red Cell Distribution Width 14.1 % (11.5-14.5); White Blood Count 3.8 K/mm3 (4.5-10.0)
[2020-04-26 06:05] LABS: Alanine Aminotransferase 29 U/L (4-50); Albumin Level 3.9 g/dL (3.5-5.1); Alkaline Phosphatase 60 U/L (38-126); Anion Gap 10 mmol/L (8-16); Aspartate Amino Transferase 53 U/L (17-59); Bilirubin,Total 0.5 mg/dL (0.2-1.3); Blood Urea Nitrogen 10 mg/dL (9-20); Calcium 8.3 mg/dL (8.4-10.2); Carbon Dioxide 26 mmol/L (22-30); Chloride 101 mmol/L (98-107); Estimated CRCL calculation 147 ml/min; Estimated Glomerular Filt Rate > 60; Glucose 120 mg/dL (75-110); Magnesium 1.6 mg/dL (1.6-2.3); Potassium 3.3 mmol/L (3.4-5.0); Sodium 137 mmol/L (137-145)
[2020-04-26 06:06] LABS: Lactic Acid Reflex 0.9 mmol/L (0.7-2.1)
[2020-04-26 06:30] LABS: Band Neutrophils Percent 22 % (0-6); Basophils Absolute Manual 0.03 K/mm3 (0.0-0.1); Basophils Percent Manual 1 % (0-1); Lymphocytes Absolute Manual 0.49 K/mm3 (1.1-4.5); Monocytes Absolute Manual 0.03 K/mm3 (0.1-0.90); Monocytes Percent Manual 1 % (3-9); Neutrophils Absolute Manual 3.23 K/mm3 (1.3-6.7); Neutrophils Percent Manual 63 % (46-73); Platelet Estimate Adequate (Adequate); Total Cells Counted 100
--- NOTE | 2020-04-26 07:36 | ADMGEN ---
This patient, Yvon Antoine, was admitted to 3 Med Surg Room 301-01. Patient/family oriented to hospital policies and general routines including ID bracelet, bed and alarms, visiting hours, pain management, procedures, bathroom and other care routines, personal items, smoking policy, room service/diet, and visiting hours. Information on how to activate the Rapid Response Team has been discussed. Patient/Family are encouraged to report perceived risks to care and to ask questions if they do not understand what they are told or what they should do.
[2020-04-26] MEDS: FUROSEMIDE INJ 40 MG/4 ML VIAL 20 MG IV PUSH (08:38)
[2020-04-26] MEDS: ENOXAPARIN 40 MG/0.4 ML SYRINGE SUB-Q (08:39)
[2020-04-26] MEDS: LEVALBUTEROL HFA (*SP) 15 GM INHALER 2 PUFF INHALATION ×2 (09:00→14:46)
--- NOTE | 2020-04-26 16:43 | PM.IMPN ---
Progress Note: A&P Assessment and Plan (1) Febrile illness: Code(s): R50.9 - Fever, unspecified Status: Acute Assessment and Plan: Awaiting Covid 19 PCR (2) S/P nasal surgery: Code(s): Z98.890 - Other specified postprocedural states Status: Chronic Assessment and Plan: Continue to monitor On Cefuroxime (3) Chronic headache: Code(s): R51.9 - Headache, unspecified; G89.29 - Other chronic pain Status: Acute Assessment and Plan: Stable (4) Chronic recurrent sinusitis: Code(s): J32.9 - Chronic sinusitis, unspecified Status: Acute Assessment and Plan: S/p surgery Follow up in the outpatient setting. (5) Seasonal allergies: Code(s): J30.2 - Other seasonal allergic rhinitis Status: Acute Assessment and Plan: On Flonase and Budesonide (6) Obesity: Code(s): E66.9 - Obesity, unspecified Status: Acute Assessment and Plan: Life style and diet modifications. Subjective Date/time seen: 04/26/20 16:43 Patient states that he feels fine Review of Systems Review of Systems: Narrative: chills and generalized malaise for the last 3 days. Constitutional: Comments: fevers and chills. ENT: Comments: no nasal congestion. Cardiovascular: Comments: no pnd, no orthopnea. Respiratory: Comments: no sob, no cough, no sputum production. Gastrointestinal: Comments: no n/v/abdominal pain. Musculoskeletal: Comments: no joint pain. Integumentary/Breasts: Comments: no rashes Neurologic: Comments: no sensory motor deficit. Exam Narrative: Exam Narrative: Sitting in bed. Const: General: healthy appearing and no acute distress Nutritional Appearance: average body habitus Orientation/consciousness: patient oriented x3 HENMT: Head: normal to inspection and normocephalic Ears: hearing grossly normal bilaterally General nose exam: Normal external nose present Face and sinus: normal facial exam Eyes: General: appearance normal, both eyes and all related structures Pupils: Equal, round and reactive pupils present EOM: EOMs intact bilaterally Neck: Neck: no lymphadenopathy, supple and no JVD Resp: Auscultation: clear to auscultation bilaterally Cardio: Rate: regular rate Rhythm: regular rhythm GI: GI Palp: Yes Soft to palpation and Yes No hepatosplenomegaly present Skin: Rashes: no rashes Neuro: General: patient oriented x3 and CN's II-XI intact bilaterally Cranial nerves: Yes CN's II-XII intact bilaterally and Yes Equal, round and reactive pupils present Cognition (Neuro): normal cognition Speech: normal speech Gait exam (Neuro): Normal gait present Motor exam (neuro): 5/5 motor strength present throughout Extrem: General: normal to inspection and no pedal edema Objective Data Vital Signs Vital Signs: Vital Signs - 24 hr 04/26/20 04:10 04/26/20 08:00 04/26/20 09:08 Temperature 99.5 F 98.6 F Pulse Rate 117 H 102 H Respiratory Rate 20 16 Blood Pressure 110/72 109/62 Pulse Oximetry 100 98 95 04/26/20 12:00 04/26/20 14:55 04/26/20 16:00 Temperature 98.7 F 98.4 F Pulse Rate 105 H 104 H Respiratory Rate 16 16 Blood Pressure 109/74 110/58 L Pulse Oximetry 97 97 100 Intake/Output Intake/Output: Intake & Output 04/23/20 04/24/20 04/25/20 04/26/20 23:59 23:59 23:59 23:59 Intake Total 240 Balance 240 Meds/Results Medications: Active Medications Generic Name Dose Route Start Last Admin Trade Name Freq PRN Reason Stop Dose Admin Acetaminophen 650 mg 04/26/20 04:41 Acetaminophen 325 Mg Tablet PO Q4H PRN Mild Pain (1-3) or Fever Enoxaparin Sodium 40 mg 04/26/20 09:00 04/26/20 08:39 Enoxaparin 40 Mg/0.4 Ml Syringe SUB-Q 40 mg DAILY HUGO Administration Furosemide 20 mg 04/26/20 09:00 04/26/20 08:38 Furosemide Inj 40 Mg/4 Ml Vial IV PUSH 20 mg DAILY HUGO Administration Ceftriaxone Sodium/Dextrose 1 gm in 50 mls @ 100 mls/hr
[2020-04-26 18:21] LABS: SARS-CoV-2 RNA PCR Negative
[2020-04-27 06:00] VITALS: BP 101/48; PULSE 91; RESP 16; TEMP 36.1; O2SAT 96
[2020-04-27] MEDS: FUROSEMIDE INJ 40 MG/4 ML VIAL 20 MG IV PUSH (08:29)
--- NOTE | 2020-04-27 13:32 | PM.DS ---
DS: Admitting Diagnosis Admitting Diagnosis Admitting Diagnosis: 1) Hypoxia: (2) Person under investigation for COVID-19: (3) Sepsis: (4) Febrile illness: . (5) S/P nasal surgery: DS: Discharge Diagnosis Discharge Diagnosis (1) Febrile illness: Code(s): R50.9 - Fever, unspecified Status: Acute Assessment and Plan: the patient remained afebrile throughout his hospital (2) Sepsis: Qualifiers: Sepsis acute organ dysfunction status: unspecified Sepsis type: sepsis due to unspecified organism Qualified Code(s): A41.9 - Sepsis, unspecified organism Code(s): A41.9 - Sepsis, unspecified organism Status: Acute Assessment and Plan: ruled out no clinical signs of acute infection (3) S/P nasal surgery: Code(s): Z98.890 - Other specified postprocedural states Status: Chronic Assessment and Plan: patient underwent sinus surgery by his ENT roughly 10 days before presenting to emergency room (4) Hypoxia: Code(s): R09.02 - Hypoxemia Status: Acute Assessment and Plan: resolved (5) Post-op pain: Code(s): G89.18 - Other acute postprocedural pain Status: Acute Assessment and Plan: continue pain management as needed (6) Obesity: Code(s): E66.9 - Obesity, unspecified Status: Acute Assessment and Plan: lifestyle and diet modification (7) Nasal polyposis: Code(s): J33.9 - Nasal polyp, unspecified Status: Acute Assessment and Plan: a status post nasal surgery will follow-up with his ENT in the outpatient setting (8) Chronic headache: Code(s): R51.9 - Headache, unspecified; G89.29 - Other chronic pain Status: Acute Assessment and Plan: follow-up in the outpatient setting (9) Apnea: Code(s): R06.81 - Apnea, not elsewhere classified Status: Acute Assessment and Plan: likely secondary to the patient's multiple upper airways problems (10) Chronic recurrent sinusitis: Code(s): J32.9 - Chronic sinusitis, unspecified Status: Acute Assessment and Plan: is status post nasal surgery (11) Seasonal allergies: Code(s): J30.2 - Other seasonal allergic rhinitis Status: Acute Assessment and Plan: continue home meds DS: Summary Hospital Course Reason for hospitalization: Fever Hospital Course: This is a pleasant 35 year old man with known history of chronic sinusitis s/p bilateral endoscopic maxillary antrostomies with tissue removal total ethmoidectomies sphenoidotomies with tissue removal frontal sinusotomies with tissue removal approximately 2 weeks ago who presented to [facility] hospital the day before due to 2 days of chills and generalized weakness. He had done well in the post surgery period and was taking Ceftin after his surgery. Patient was found to be septic with tachycardia and fever. He complained of one brief episode of dysuria but that he hasn't had any further problems with urination. He denied any significant cough or shortness of breath or sputum production no chest pain, nausea, vomiting, sore throat, nasal discomfort, abdominal pain, diarrhea, LE swelling or LE pain. CXR was significant for ground glass opacities and the patient was treated with a 30cc/kg IV bolus of fluids and IV antibiotics. He subsequently become fluid overloaded and was given IV Lasix. He needed to be placed on supplemental oxygen 2L via [place]. Patient was placed on airborne isolation and a COVID-19 PCR was sent which came back negative. Patient had an uneventful hospital stay. He was given antibiotics IV, which were discontinued. Patient is supposed to follow-up in the outpatient setting with his ENT doctor. THE PATIENT WAS DISCHARGED HOME. NO CONSULTS WERE OBTAINED NO PROCEDURES WERE DONE Status at Discharge Cognitive/behavioral status at discharge: AOX3 Functional statu
== END 2020-04-27 13:45 | disposition home or self-care (01) | DRG 206 ==
PROVIDERS: Admitting Provider Family Medicine; PCP Family Medicine; Visit Provider Internal Medicine
DX: R09.02 Hypoxemia (principal); R00.0 Tachycardia, unspecified; R50.9 Fever, unspecified; Z98.890 Other specified postprocedural states; Z20.822 Contact with and (suspected) exposure to COVID-19; J32.9 Chronic sinusitis, unspecified; R51.9 Headache, unspecified; G89.29 Other chronic pain; J30.2 Other seasonal allergic rhinitis; G89.18 Other acute postprocedural pain; L30.9 Dermatitis, unspecified; E66.9 Obesity, unspecified; Z68.38 Body mass index [BMI] 38.0-38.9, adult
CPT/HCPCS: 36415; 71045; 71275; 80053; 83605; 83735; 85025; 87040; 93005; 94640; 96372; 96374; A9270; C9803; G0378; G0379; J0456; J0696; J1650; J1940; Q9967; U0003; U0005

== ENCOUNTER 2020-05-02 08:14 | Emergency (ER) | payer OTHER, SELFPAY ==
--- NOTE | 2020-05-02 08:25 | ED.EYEPROB ---
HPI - Eye Problem General Chief complaint: Eye Problems Stated complaint: Eye Pain Time Seen by Provider: 05/02/20 08:25 Source: patient and RN notes reviewed History of Present Illness HPI Narrative: Patient is a 35-year-old male who presents the urgent care with complaints of redness to bilateral eyes. Patient states that his noticed it Sunday night and he woke up morning and noticed it himself. Patient states that his work sent him to be evaluated today. Patient denies of any itching, matting in the eyes, pain, vision changes, known trauma or known injury. 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 Denies of any other acute complaints. No acute distress noted. Patient states that he did use [facility] but otherwise has not taken anything [id number] for his symptoms. Patient aware of the plan of care. Some parts of this dictation were generated by voice recognition software and may contain typographical and/or grammatical inaccuracies. Related Data Allergies Allergy/AdvReac Type Severity Reaction Status Date / Time No Known Allergies Allergy Verified 04/19/20 13:08 Review of Systems Review of Systems: Narrative: CONSTITUTIONAL: Denies fever, chills, or sweats. EYES: Reports of bilateral eye redness without vision change or discharge ENT: Denies rhinorrhea, congestion, sore throat, or otalgia. CARDIOVASCULAR: Denies chest pain, palpitations, or edema. RESPIRATORY: Denies cough or dyspnea. GASTROINTESTINAL: Denies abdominal pain, nausea, vomiting, or diarrhea. GENITOURINARY: Denies dysuria or hematuria. SKIN: Denies rash or itching. MUSCULOSKELETAL: Denies back pain, joint pain, or myalgia. NEUROLOGIC: Denies headache, numbness, or weakness. All other systems reviewed are negative, except as documented in HPI. [facility] Past Medical History Medical History Broken nose 2002 Chronic recurrent sinusitis Deviated septum Eczema Obesity Seasonal allergies Stuffy nose (~11/2018) Syncope Surgical History Surgical History History of nasal surgery 2002 [place] teeth extracted 2001 Family History Family History Other No pertinent family history Social History Social History Years smoked: 3 Smoking status: Never smoker Tobacco type: cigars Second hand tobacco smoke exposure: No Additional smoking assessment comments: SMOKES CIGARS OCCASIONALLY Alcohol intake: current Drinks per week: 1 Substance use: current Substance use type: marijuana Last use: 04/04/2020 Gender identity (if verbalized by the patient): Male Spiritual care concerns: No Comments At the time of my signature, I reviewed and agree with the nursing past medical, surgical, social, and family history. There is no relevant family history pertinent to the patient complaint. Exam Narrative: Exam Narrative: GENERAL: This is a well-nourished, well-developed patient, in no apparent distress. HEAD: normocephalic, atraumatic. EYES: PERRL. Bilateral injected conjunctiva with bilateral red sclera. No obvious injury.. Vision is grossly intact. EARS: External ears normal, auditory canals clear and without drainage, TMs normal without perforation. Hearing grossly intact. NOSE: External nose normal with no obvious nasal discharge, nares without redness, no rhinorrhea. THROAT: Mucous membranes moist, posterior pharynx clear. NECK: Neck supple SKIN: warm, intact with no suspicious lesions or rash, good texture and turgor. NEURO: awake, alert, and oriented to person, place and time. There were no obvious focal neurologic abnormalities. EXTREMITIES: No clubbing, cyanosis, or edema. Course Vital Signs Vital signs: Vital Signs Temperature 97.3 F L 05/02/20 08:29 Pulse Rate 73 05/02/20 08:29
[2020-05-02 08:29] VITALS: BP 149/97; PULSE 73; RESP 16; TEMP 36.3; O2SAT 99
== END 2020-05-02 08:38 | disposition home or self-care (01) ==
PROVIDERS: Emergency Provider Nurse Practitioner Family
DX: H10.13 Acute atopic conjunctivitis, bilateral (principal)
CPT/HCPCS: 99213; G0463

== ENCOUNTER 2020-09-24 08:40 | Outpatient (CLI) | payer OTHER, SELFPAY ==
--- NOTE | 2020-09-29 10:15 | WPDHOMESLEEP ---
Sleep Study - Home Unattended Date of Study: 09/24/20 Ordering Provider: Deanna Rosales MD Interpreting Provider: Deanna Rosales MD Home Sleep Study Type: Watch PAT Height: 1.88 m Weight: 140.614 kg Body Mass Index: 39.8 Neck Circumference (inches): 18.5 Stanley: 13 Reason for Sleep Study Heavy loud snoring, witnessed apneas Sleep History Yvon Antoine is a 35 year old man with loud snoring and witnessed apneas. He rarely awakens at night feeling short of breath. He does not awaken with heartburn, belching or coughing. He occasionally has trouble sleep with a cold. He does not gasp for breath at night. He frequently has breathing problems at night observed by others and heavy sweating at night. He does not notice his heart pounding or beating irregularly night. He rarely falls asleep during the day, never falls asleep involuntarily or while driving. He does not have loss of muscle tone with strong emotion. He rarely has daytime difficulties due to excessive sleepiness. He does not feel paralyzed on waking or falling asleep. He rarely has vivid dreamlike scenes upon awakening or falling asleep. He does not feel afraid to go to sleep. He does not have nightmares. He rarely remembers his dreams. He rarely has racing thoughts. He does not feel sad, depressed or anxious. He occasionally has muscular tension. He rarely notices parts of his body jerking. He does not kick at night, does not have crawling or aching feelings in his legs, does not have any kind of leg pain at night. He denies morning jaw pain and does not grind his teeth during sleep. He is not bothered by pain during the day or awakened by pain at night. He frequently wakes up feeling stiff in the morning. He does not wake up with sore achy muscles. He rarely wakes up with pain in the neck and spine. He has headaches and fatigue. He had sinus surgery in 2010, and has nasal allergies. Normal bedtime is 10:00 p.m. falling asleep within seconds, waking once at night to urinate and then returns to sleep quickly. He wakes the morning between 2 and 4:00 a.m.. On the weekends he goes to bed at 10:00 p.m. also and wakes at 8:00 a.m.. He takes naps in the afternoon or evening. A short nap is not refreshing. He is usually drowsy in the morning for 2 hours or longer. He feels better in the afternoon or evening compared to the morning. Habits: Never smoked tobacco. Caffeine 1 serving per day. No alcohol or recreational drugs. PMFSH Past Medical History Medical History Broken nose 2002 Chronic recurrent sinusitis Deviated septum Eczema Obesity Seasonal allergies Stuffy nose (~11/2018) Syncope Surgical History Surgical History History of nasal surgery 2002; Mar 2020 [place] teeth extracted 2001 Family History Family History Father Obstructive sleep apnea Other No pertinent family history Social History Social History Years smoked: 3 Smoking status: Former smoker Tobacco type: cigars Second hand tobacco smoke exposure: No Additional smoking assessment comments: SMOKES CIGARS OCCASIONALLY Alcohol intake: current Drinks per week: 1 Alcohol use details: MIXED DRINK Substance use: current Substance use type: marijuana Last use: 04/04/2020 Gender identity (if verbalized by the patient): Male Spiritual care concerns: No Medications Home Medications Medication Instructions Recorded Confirmed Type amoxicillin 875 mg-potassium 1 tablet PO BID #14 tablet 08/18/20 09/20/20 Rx clavulanate 125 mg tablet methylprednisolone 4 mg tablets in See Rx Instructions PO PER PKG DIR 08/18/20 09/20/20 Rx a dose pack #21 ea budesonide 0.25 mg/2 mL suspension 0.25 mg IRRIGATION BID #60 ml 09/20/20 09/20/20 Rx
[2020-09-29 10:24] VITALS: BMI 39.8
== END 2020-09-28 14:41 | disposition home or self-care (01) ==
LOC: ANHCSM 08:40
PROVIDERS: Visit Provider Internal Medicine Critical Care Medicine
DX: G47.26 Circadian rhythm sleep disorder, shift work type (principal); G47.10 Hypersomnia, unspecified; G47.30 Sleep apnea, unspecified; G47.39 Other sleep apnea
CPT/HCPCS: 95800

== ENCOUNTER → 2021-01-10 02:43 | Outpatient (CLI) | payer OTHER, SELFPAY ==
[2021-01-10 18:23] LABS: SARS-CoV-2 RNA PCR Negative
== END ==
PROVIDERS: Family Medicine; PCP Family Medicine; Visit Provider Internal Medicine Critical Care Medicine
DX: R68.89 Other general symptoms and signs (principal); Z20.822 Contact with and (suspected) exposure to COVID-19
CPT/HCPCS: C9803; U0003; U0005

== ENCOUNTER 2021-01-12 08:28 | Outpatient (CLI) | payer OTHER, SELFPAY ==
--- NOTE | 2021-02-02 22:45 | WPDSLEEPSTUD ---
Sleep Study Date of Study: 01/12/21 Ordering Provider: Deanna Rosales MD Interpreting Physician: Deanna Rosales MD Sleep Study Type: CPAP Titration Height: 1.88 m Weight: 138.346 kg Body Mass Index: 39.1 Neck Circumference (inches): 19 Gould: 17 Reason for Sleep Study * Home sleep study 09/24/2020 with severe mixed sleep apnea, apnea hypopnea index 32.6, desaturation to 65%, equal number obstructive and central apneas; patient presents for CPAP titration Sleep History Yvon Antoine is a 35 year old man with loud snoring and witnessed apneas. He rarely awakens at night feeling short of breath. He does not awaken with heartburn, belching or coughing. He occasionally has trouble sleep with a cold. He does not gasp for breath at night. He frequently has breathing problems at night observed by others and heavy sweating at night. He does not notice his heart pounding or beating irregularly night. He rarely falls asleep during the day, never falls asleep involuntarily or while driving. He does not have loss of muscle tone with strong emotion. He rarely has daytime difficulties due to excessive sleepiness. He does not feel paralyzed on waking or falling asleep. He rarely has vivid dreamlike scenes upon awakening or falling asleep. He does not feel afraid to go to sleep. He does not have nightmares. He rarely remembers his dreams. He rarely has racing thoughts. He does not feel sad, depressed or anxious. He occasionally has muscular tension. He rarely notices parts of his body jerking. He does not kick at night, does not have crawling or aching feelings in his legs, does not have any kind of leg pain at night. He denies morning jaw pain and does not grind his teeth during sleep. He is not bothered by pain during the day or awakened by pain at night. He frequently wakes up feeling stiff in the morning. He does not wake up with sore achy muscles. He rarely wakes up with pain in the neck and spine. He has headaches and fatigue. He had sinus surgery in 2010, and has nasal allergies. Normal bedtime is 10:00 p.m. falling asleep within seconds, waking once at night to urinate and then returns to sleep quickly. He wakes the morning between 2 and 4:00 a.m.. On the weekends he goes to bed at 10:00 p.m. also and wakes at 8:00 a.m.. He takes naps in the afternoon or evening. A short nap is not refreshing. He is usually drowsy in the morning for 2 hours or longer. He feels better in the afternoon or evening compared to the morning. Habits: Never smoked tobacco. Caffeine 1 serving per day. No alcohol or recreational drugs. [facility] Past Medical History Medical History Broken nose 2002 Chronic recurrent sinusitis Deviated septum Eczema Obesity Seasonal allergies Stuffy nose (~11/2018) Syncope Surgical History Surgical History History of nasal surgery 2002; Mar 2020 [place] teeth extracted 2001 Family History Family History Father Obstructive sleep apnea Other No pertinent family history Social History Social History Years smoked: 3 Smoking status: Former smoker Tobacco type: cigars Second hand tobacco smoke exposure: No Additional smoking assessment comments: SMOKES CIGARS OCCASIONALLY Alcohol intake: current Drinks per week: 1 Alcohol use details: MIXED DRINK Substance use: current Substance use type: marijuana Last use: 04/04/2020 Gender identity (if verbalized by the patient): Male Spiritual care concerns: No Medications Home Medications Medication Instructions Recorded Confirmed Type budesonide 0.25 mg/2 mL suspension 0.25 mg IRRIGATION BID #60 ml 09/20/20 12/15/20 Rx for nebulization doxycycline hyclate 100 mg capsule 100 mg PO DAILY #10 cap 12/15/20 12/15/20 Rx
[2021-02-02 22:47] VITALS: BMI 39.1
== END 2021-01-13 06:55 | disposition home or self-care (01) ==
LOC: ANHCSM 09:08
PROVIDERS: PCP Family Medicine; Visit Provider Internal Medicine Critical Care Medicine
DX: G47.39 Other sleep apnea (principal)
CPT/HCPCS: 95811

== ENCOUNTER 2021-05-04 12:49 | Outpatient (CLI) | payer OTHER, SELFPAY ==
--- NOTE | 2021-05-04 13:15 | ECHO_ITS ---
Patient Info Name: Yvon Antoine Age: 36 years : 1985 Gender: Male Ht: 74 in Wt: 300 lbs BSA: 2.72 m2 HR: 83 bpm BP: 137 / 85 mmHg Heart Rhythm: Sinus Rhythm Technical Quality: Fair Exam Date: 05/04/2021 1:29 PM Exam Location: [facility] Pulmonary Patient Status: Outpatient Admit Date: 05/04/2021 Staff Ordering Physician: Lesley Lara PA-C Computer Equipment Repairer: Lupe Islas RDCS Attending Provider: Lesley Lara PA-C Exam Type: CA echo doppler color flow Study Info Indications - primary central sleep apnea Complete two-dimensional, color flow and Doppler transthoracic echocardiogram is performed. Summary 1. Complete two-dimensional, color flow and Doppler transthoracic echocardiogram is performed. 2. Left ventricular chamber dimension is normal. 3. Left ventricular systolic function is normal, estimated at 65-70%. 4. There is mildly increased left ventricular wall thickness. 5. The left ventricular diastolic function is grade I diastolic dysfunction. 6. There is trace mitral valve regurgitation. 7. There is mild tricuspid valve regurgitation. 8. No pulmonary hypertension, estimated pulmonary arterial systolic pressure is 25 mmHg. Left Ventricle Left ventricular chamber dimension is normal. Left ventricular systolic function is normal, estimated at 65-70%. There is mildly increased left ventricular wall thickness. The left ventricular diastolic function is grade I diastolic dysfunction. Right Ventricle Right ventricular chamber dimension is normal. Right ventricular systolic function is normal. Left Atria Left atrial chamber dimension is mildly enlarged. Right Atria Right atrial chamber dimension is mildly enlarged. Aortic Valve The aortic valve is trileaflet. There is no aortic valve stenosis. There is no aortic valve regurgitation. Pulmonic Valve The pulmonic valve is not well visualized. There is trace pulmonic regurgitation. Mitral Valve The mitral valve has normal leaflets. There is trace mitral valve regurgitation. Tricuspid Valve The tricuspid valve leaflets are normal. There is mild tricuspid valve regurgitation. No pulmonary hypertension, estimated pulmonary arterial systolic pressure is 25 mmHg. Pericardium/Pleural The pericardium appears normal. There is no pericardial effusion. Inferior Vena Cava Normal inferior vena cava with >50% collapse upon inspiration consistent with normal right atrial pressure, 5 mmHg. Aorta The aortic root size at the sinus of Valsalva is normal. Left Ventricular Outflow Tract Name Value Normal LVOT 2D LVOT Diameter 2.1 cm LVOT Doppler LVOT Peak Gradient 7 mmHg LVOT Mean Gradient 4 mmHg LVOT VTI 21 cm LVOT VTI/AV VTI Ratio 0.9 LVOT Stroke Volume 76 ml LVOT CO 19.1 l/min LVOT CI 7.0 l/min/m2 Pulmonic Valve Name
== END 2021-05-04 12:50 | disposition home or self-care (01) ==
PROVIDERS: PCP Family Medicine; Visit Provider Physician Assistant
DX: R06.02 Shortness of breath (principal); G47.31 Primary central sleep apnea; I28.8 Other diseases of pulmonary vessels; I36.1 Nonrheumatic tricuspid (valve) insufficiency
CPT/HCPCS: 93306

== ENCOUNTER 2023-07-06 15:13 | Outpatient (CLI) | payer OTHER, SELFPAY ==
[2023-07-06 18:36] LABS: Alanine Aminotransferase 29 U/L (6-50); Albumin Level 4.9 g/dL (3.5-5.1); Alkaline Phosphatase 61 U/L (38-126); Anion Gap 9 mmol/L (4-12); Aspartate Amino Transferase 35 U/L (17-59); Bilirubin,Total 0.5 mg/dL (0.2-1.3); Blood Urea Nitrogen 13 mg/dL (9-20); Carbon Dioxide 30 mmol/L (22-30); Chloride 104 mmol/L (98-107); Cholesterol 168 mg/dL (0-200); Estimated Glomerular Filt Rate > 60; Glucose 84 mg/dL (65-110); HDL Direct 41 mg/dL; Potassium 4.4 mmol/L (3.4-5.0); Sodium 143 mmol/L (137-145); Triglycerides 164 mg/dL (<150)
[2023-07-06 18:38] LABS: Basophils Absolute Auto 0.1 K/mm3 (0.0-0.1); Basophils Percent Auto 1.1 % (0.2-1.2); Eosinophils Absolute Auto 0.1 K/mm3 (0-0.3); Eosinophils Percent Auto 2.3 % (0-4.4); Hematocrit 43.6 % (42.0-52.0); Hemoglobin 13.9 g/dL (14.0-18.0); Immature Granulocyte Absolute 0.01 K/mm3 (0.00-0.031); Immature Granulocyte Percent A 0.2 % (0-0.5); Lymphocytes Absolute Auto 3.02 K/mm3 (0.9-3.2); Lymphocytes Percent Auto 49.6 % (18.3-44.2); Mean Corpuscular HGB Conc 31.9 g/dl (32-36); Mean Corpuscular Hemoglobin 27.6 pg (26-34); Mean Corpuscular Volume 86.7 fl (80-100); Mean Platelet Volume 10.4 fl (7.4-10.4); Monocytes Absolute Auto 0.5 K/mm3 (0.1-0.6); Neutrophils Absolute Auto 2.4 K/mm3 (1.3-6.7); Neutrophils Percent Auto 38.8 % (45.5-73.1); Platelet Count Result 298 k/mm3 (150-375); Red Blood Count 5.03 M/mm3 (4.6-6.20); Red Cell Distribution Width 13.6 % (11.5-14.5); White Blood Count 6.1 K/mm3 (4.5-10.0)
[2023-07-06 18:48] LABS: LDL Cholesterol Direct 98 mg/dL
[2023-07-06 19:02] LABS: Hemoglobin A1C 5.6 % (<5.7)
== END 2023-07-06 15:14 | disposition home or self-care (01) ==
LOC: ANHGOSHLAB 15:14
PROVIDERS: PCP Family Medicine; Visit Provider Nurse Practitioner Family
DX: Z00.00 Encounter for general adult medical examination without abnormal findings (principal); I10 Essential (primary) hypertension; Z13.1 Encounter for screening for diabetes mellitus; Z13.220 Encounter for screening for lipoid disorders; Z13.29 Encounter for screening for other suspected endocrine disorder
CPT/HCPCS: 36415; 80053; 80061; 83036; 84443; 85025